=== PATIENT | male | born 1940 | race Caucasian/White ===

== ENCOUNTER 2024-06-27 13:58 | Outpatient (CLI) | payer MEDICARE | END 2024-06-27 13:59 | disposition home or self-care (01) | LOC: SCSMRI 13:58 | PROVIDERS: ATTEND Orthopaedic Surgery | DX: M79.662 Pain in left lower leg (principal); M25.562 Pain in left knee; S83.232A Complex tear of medial meniscus, current injury, left knee, initial encounter; M17.12 Unilateral primary osteoarthritis, left knee; M24.10 Other articular cartilage disorders, unspecified site ==